=== PATIENT | female | born 1980 | race Caucasian/White ===

== ENCOUNTER 2021-11-28 16:17 | Emergency (ER) | payer MEDICAID ==
[~2021-11-28] VITALS: Ht 152.4 cm; Wt 63.5 kg
[~2021-11-28 16:17] MED LIST: CYCL10TA16 PO; NAPR-1180 PO
[2021-11-28 18:51] LABS: BILIRUBIN,URINE NEGATIVE (NEGATIVE); COLOR,URINE LIGHT-YELLOW (YELLOW); GLUCOSE, URINE (UA) NEGATIVE (NEGATIVE); KETONES,URINE NEGATIVE (NEGATIVE); LEUKOCYTE ESTERASE ,URINE 500 Leu/uL (NEGATIVE); NITRATE,URINE 2+ (NEGATIVE); OCCULT BLOOD,URINE NEGATIVE (NEGATIVE); PH,URINE 6.5 (5.0-8.0); PROTEIN,URINE 70 mg/dL (NEGATIVE); UROBILINOGEN,URINE 0.2 mg/dL (0.2-1.0)
[2021-11-28 18:57] LABS: APPEARANCE,URINE CLOUDY (CLEAR)
[2021-11-28 19:00] LABS: HCG,QUALITATIVE URINE NEGATIVE (NEGATIVE)
[2021-11-28] MEDS ORDERED: KETOROLAC 30MG VIAL (30MG/ML) IM ONE (19:00)
[2021-11-28] MEDS ORDERED: LORAZEPAM 1 MG TABLET PO ONE (19:00)
[2021-11-28 19:14] LABS: BACTERIA,URINE MOD /HPF (None Seen); MUCUS,URINE RARE LPF (None Seen); SQUAMOUS EPITHELIAL CELL,UR FEW /HPF (0-2); WBC,URINE 51-100 /HPF (0-1); YEAST,URINE BUDDING MOD /HPF (None Seen)
[2021-11-28] MEDS ORDERED: NAPR500T6 PO (19:56)
[2021-11-28] MEDS ORDERED: CYCL10TA16 PO (19:56)
[2021-11-28 20:01] VITALS: BP 145/88
== END 2021-11-28 20:06 | disposition home or self-care (01) ==
LOC: EDH 16:17
DX: M54.50 Low back pain, unspecified (principal); F41.9 Anxiety disorder, unspecified; F32.A Depression, unspecified; G43.909 Migraine, unspecified, not intractable, without status migrainosus; F43.10 Post-traumatic stress disorder, unspecified; F98.8 Other specified behavioral and emotional disorders with onset usually occurring in childhood and adolescence; Z98.890 Other specified postprocedural states; Z88.0 Allergy status to penicillin; Z88.2 Allergy status to sulfonamides; Z88.1 Allergy status to other antibiotic agents; Z79.899 Other long term (current) drug therapy
CPT/HCPCS: 99284; 72131; 87077; 87088; 87186; 81001; 81025; 96372; J1885

== ENCOUNTER 2022-07-05 17:07 | Emergency (ER) | payer MEDICAID ==
[~2022-07-05] VITALS: Ht 149.9 cm; Wt 59.0 kg
[~2022-07-05 17:07] MED LIST changes: +NAPR500T6 PO
[2022-07-05] MEDS ORDERED: KETOROLAC 30MG VIAL (30MG/ML) IM ONE (18:00)
[2022-07-05] MEDS ORDERED: CYCL10TA16 PO (18:40)
[2022-07-05] MEDS ORDERED: IBUP-2070 PO (18:40)
[2022-07-05 18:51] VITALS: BP 149/87
== END 2022-07-05 18:50 | disposition home or self-care (01) ==
LOC: EDH 17:07
DX: S86.912A Strain of unspecified muscle(s) and tendon(s) at lower leg level, left leg, initial encounter (principal); G43.909 Migraine, unspecified, not intractable, without status migrainosus; F32.A Depression, unspecified; F41.9 Anxiety disorder, unspecified; Z88.0 Allergy status to penicillin; Z88.2 Allergy status to sulfonamides; Z88.8 Allergy status to other drugs, medicaments and biological substances; Z79.899 Other long term (current) drug therapy; Z90.710 Acquired absence of both cervix and uterus; X58.XXXA Exposure to other specified factors, initial encounter; Y93.89 Activity, other specified; Y92.89 Other specified places as the place of occurrence of the external cause; Y99.8 Other external cause status
CPT/HCPCS: 99283; 73564; 96372; J1885